=== PATIENT | male | born 1970 | race African-American/Black ===

== ENCOUNTER 2017-06-02 17:45 | Emergency (ER) | payer MEDICAID ==
[~2017-06-02] VITALS: Ht 175.3 cm; Wt 69.0 kg
[~2017-06-02 17:45] MED LIST: FAMOTIDINE; FOLIC ACID; METHOCARBAMOL; MVI; OMEPRAZOLE; PROPRANOLOL; THIAMINE; [UNRECOGNIZED DRUG - OTHER]
[2017-06-03] MEDS ORDERED: KETOROLAC 60MG/2ML VIAL IM ONE (00:15)
[2017-06-03 00:31] LABS: CLARITY URINE CLEAR (CLEAR); COLOR URINE DARK YELLOW (YELLOW); KETONES URINE TRACE (NEGATIVE); LEUKOCYTE ESTERASE URINE NEGATIVE (NEGATIVE); NITRITE URINE NEGATIVE (NEGATIVE); OCCULT BLOOD URINE NEGATIVE (NEGATIVE); PROTEIN URINE NEGATIVE (NEGATIVE); SPECIFIC GRAVITY URINE 1.028 (1.005-1.030)
[2017-06-03 02:00] VITALS: BP 114/57
== END 2017-06-03 02:35 | disposition home or self-care (01) ==
LOC: ER 17:45
DX: G89.29 Other chronic pain (principal); M54.5 Low back pain; F12.10 Cannabis abuse, uncomplicated
CPT/HCPCS: 81003; 96372; 99283; J1885